=== PATIENT | female | born 1960 | race Two or more races ===

== ENCOUNTER → 2017-05-02 | Outpatient (CLI) | payer MEDICAID ==
[~2017-05-02] VITALS: Ht 165.1 cm; Wt 71.9 kg
[~2017-05-02] MED LIST: ACAR50TA11 PO; AMLO-512 PO; FURO40 PO; INSU3INS3 SQ; MELO-107 PO; [UNRECOGNIZED DRUG - CODE] PO
[2017-05-02 08:37] VITALS: BP 155/77
== END | disposition home or self-care (01) ==
LOC: HBOWC 07:36
PROVIDERS: ATTEND Surgery Plastic and Reconstructive Surgery
DX: E11.621 Type 2 diabetes mellitus with foot ulcer (principal); L97.521 Non-pressure chronic ulcer of other part of left foot limited to breakdown of skin; E11.40 Type 2 diabetes mellitus with diabetic neuropathy, unspecified; E11.610 Type 2 diabetes mellitus with diabetic neuropathic arthropathy
CPT/HCPCS: 11042

== ENCOUNTER → 2017-05-09 | Outpatient (CLI) | payer MEDICAID ==
[2017-05-09 08:42] VITALS: BP 156/71
== END | disposition home or self-care (01) ==
LOC: HBOWC 07:43
PROVIDERS: ATTEND Surgery Plastic and Reconstructive Surgery
DX: E11.621 Type 2 diabetes mellitus with foot ulcer (principal); L97.521 Non-pressure chronic ulcer of other part of left foot limited to breakdown of skin; E11.610 Type 2 diabetes mellitus with diabetic neuropathic arthropathy
CPT/HCPCS: 11042